=== PATIENT | female | born 1960 | race Caucasian/White ===

== ENCOUNTER 2023-08-09 03:19 | Emergency (ER) | payer MEDICAID ==
[~2023-08-09] VITALS: Ht 154.9 cm; Wt 91.0 kg
[2023-08-09 03:32] VITALS: TEMP 98.7; O2SAT 100
[2023-08-09] MEDS ORDERED: CEPH250C2 MT (05:29)
[2023-08-09] MEDS ORDERED: IBUP-2028 MT (05:29)
[2023-08-09 06:09] VITALS: BP 129/81; PULSE 77; RESP 12
== END 2023-08-09 06:10 | disposition home or self-care (01) ==
LOC: ER 03:19
DX: S01.01XA Laceration without foreign body of scalp, initial encounter (principal); X58.XXXA Exposure to other specified factors, initial encounter; Y93.89 Activity, other specified; Y92.89 Other specified places as the place of occurrence of the external cause; Y99.8 Other external cause status
CPT/HCPCS: 12013; 99284

== ENCOUNTER 2023-08-27 12:49 | Emergency (ER) | payer MEDICAID ==
[~2023-08-27] VITALS: Ht 165.1 cm; Wt 68.0 kg
[~2023-08-27 12:49] MED LIST: CEPH250C2 MT; IBUP-2028 MT
[2023-08-27 13:16] VITALS: O2SAT 100
[2023-08-27] MEDS: ACETAMINOPHEN 325MG TABLET PO ONE (13:45)
[2023-08-27 16:00] VITALS: BP 160/98; PULSE 70; RESP 16; TEMP 98.2
== END 2023-08-27 16:05 | disposition home or self-care (01) ==
LOC: ER 14:00
DX: S09.90XD Unspecified injury of head, subsequent encounter (principal); R51.9 Headache, unspecified; X58.XXXD Exposure to other specified factors, subsequent encounter
CPT/HCPCS: 99284